=== PATIENT | male | born 1965 | race Caucasian/White ===

== ENCOUNTER 2019-09-10 12:14 | Outpatient (CLI) | payer OTHER, SELFPAY | END 2019-09-10 12:15 | disposition home or self-care (01) | PROVIDERS: PCP Internal Medicine; Visit Provider Urology | DX: N43.40 Spermatocele of epididymis, unspecified (principal) | CPT/HCPCS: 87086 ==

== ENCOUNTER 2019-09-13 12:47 | Emergency (ER) | payer OTHER, SELFPAY ==
--- NOTE | ~2019-09-13 | CT_ITS ---
EXAMINATION: CT abdomen pelvis w con DATE: 09/13/2019 13:48 INDICATION: Left lower quadrant pain TECHNIQUE: Computed tomography (CT) of the abdomen and pelvis was performed with 100 cc Omnipaque 350 intravenous contrast. The dose-length product was 561.02 mGy-cm. Automated exposure control and iter ative reconstruction technique were employed. COMPARISON: None. FINDINGS: Dependent atelectasis. No significant pleural or pericardial effusion. Heart size normal. M ild atherosclerosis. There is a right hydrocele. No lymphadenopathy. There are liver cysts, left hepatic lobe. The spleen, pancreas, adrenal glands and kidneys are unrema rkable. Gallbladder is present. There is acute diverticulitis of the descending colon. No obstruction. No abnormal pelvic masses or f luid collections. There are appendectomy clips. No free air no free air. No evidence for abscess. IMPRESSION: 1. Acute uncomplicated descending diverticulitis. Reviewed, dictated and finalized at location A.
[2019-09-13 12:52] VITALS: BP 135/88; PULSE 94; RESP 20; TEMP 37; O2SAT 98
--- NOTE | 2019-09-13 12:58 | ED.ABDPAIN ---
HPI - Abdominal Pain General Chief Complaint: Abdominal Pain Stated Complaint: LLQ pain Time Seen by Provider: 09/13/19 12:52 History of Present Illness HPI narrative: Pt is a 53 y/o male presenting to the ED c/o ABD pain. Pt reports he started experiencing LUQ ABD pain yesterday at 1700 while eating dinner. Pt states the pain is currently a 5/10 on the pain scale and notes it is worsened with palpation and movement. Pt also reports subjective fever and nausea, but denies constipation, vomiting, urinary frequency, dysuria, or cough. Pt states he took a laxative despite not feeling constipated and performed a BM. Pt also notes his temperature was 99.2 F despite subjectively feeling a fever. Pt reports Hx's of multiple hernias with a hernia repair and an appendectomy. Pertinent past history: other (Multiple hernias) Onset (ago): day(s) (1) Location: LUQ Associated symptoms: nausea and fever (Subjective) Related Data Home Medications Medication Instructions Recorded Confirmed valacyclovir 500 mg PO QPM 09/08/19 09/08/19 vilazodone [Viibryd] 10 mg PO QPM 09/08/19 09/08/19 Allergies Allergy/AdvReac Type Severity Reaction Status Date / Time No Known Allergies Allergy Verified 09/13/19 13:01 Review of Systems Review of Systems: All systems reviewed & are unremarkable except as noted in HPI and below Constitutional: Constitutional: Reports fever(s) (Subjective) Respiratory: Respiratory: Denies cough Gastrointestinal: Gastrointestinal: Reports abdominal pain (LUQ), Reports nausea, Denies vomiting and Denies other (Constipation) Genitourinary: Genitourinary: Denies dysuria and Denies urinary frequency PMFSH Past Medical History Medical History Anxiety Bronchitis Finger fracture Herpes Surgical History Surgical History H/O inguinal hernia repair History of appendectomy Family History Family History Other Family history of allergic disorder Social History Social History Smoking status: Never smoker Alcohol intake: never Exam Const: General: healthy appearing, no acute distress and alert Nutritional Appearance: well nourished HENMT: Mouth: Yes lip normal Eyes: Conjunctivae: conjunctivae normal Resp: Effort & Inspection: normal respiratory effort GI: GI Palp: Yes Soft to palpation and Yes Tenderness to palpation present (GI) (Point in LUQ just medial to the anterior superior illiac) Auscultation: normal bowel sounds Back/Spine/Pelvis: Back: other (Full ROM) Skin: General skin exam: normal color Other: Warm; Dry Neuro: General: patient oriented x3 Speech: normal speech Extrem: General: full ROM Psych: Mental Status: mental status grossly normal Affect: normal affect Course Vital Signs Vital signs: Vital Signs Temperature 37.0 C 09/13/19 12:52 Pulse Rate 94 09/13/19 12:52 Respiratory Rate 20 09/13/19 12:52 Blood Pressure 135/88 09/13/19 12:52 Pulse Oximetry 98 09/13/19 12:52 Temperature 37.0 C 09/13/19 12:52 Pulse Rate 96 09/13/19 14:17 Respiratory Rate 20 09/13/19 12:52 Blood Pressure 132/83 09/13/19 14:17 Pulse Oximetry 98 09/13/19 14:17 MDM - Abdominal Pain MDM Narrative Medical decision making narrative: He has uncomplicated diverticulitis and should be a good candidate for outpatient treatment. Given instructions for when to return to the ED. Differential Diagnosis Differential diagnosis: Likely calculus of kidney, diverticulitis and small bowel obstruction Medical Records Attestation: I reviewed the patient's medical records. Lab Data Attestation: I reviewed the patient's lab results. Result diagrams: 09/13/19 13:03 09/13/19 13:03 Labs: Lab Results 09/13/19 09/13/19 09/13/19 Range/Units 13:03 13:03 13:54 WBC 12.2 H (4.5
[2019-09-13 13:09] LABS: Basophils Percent Auto 0.2 % (0.2-1.2); Eosinophils Absolute Auto 0.1 K/mm3 (0-0.3); Eosinophils Percent Auto 0.7 % (0-4.4); Hematocrit 43.7 % (42.0-52.0); Hemoglobin 14.5 g/dL (14.0-18.0); Immature Granulocyte Absolute 0.04 K/mm3 (0.00-0.031); Immature Granulocyte Percent A 0.3 % (0-0.5); Lymphocytes Absolute Auto 1.23 K/mm3 (0.9-3.2); Lymphocytes Percent Auto 10.1 % (18.3-44.2); Mean Corpuscular HGB Conc 33.2 g/dl (32-36); Mean Corpuscular Hemoglobin 30.8 pg (26-34); Mean Corpuscular Volume 92.8 fl (80-100); Mean Platelet Volume 10.6 fl (7.4-10.4); Monocytes Absolute Auto 1.2 K/mm3 (0.1-0.6); Monocytes Percent Auto 9.5 % (2.6-8.5); Neutrophils Absolute Auto 9.7 K/mm3 (1.3-6.7); Neutrophils Percent Auto 79.2 % (45.5-73.1); Platelet Count Result 205 k/mm3 (150-375); Red Blood Count 4.71 M/mm3 (4.6-6.20); Red Cell Distribution Width 12.9 % (11.5-14.5); White Blood Count 12.2 K/mm3 (4.5-10.0)
[2019-09-13 13:22] LABS: Alanine Aminotransferase 30 U/L (4-50); Albumin Level 4.4 g/dL (3.5-5.1); Alkaline Phosphatase 88 U/L (38-126); Aspartate Amino Transferase 26 U/L (17-59); Bilirubin,Total 0.8 mg/dL (0.2-1.3); Blood Urea Nitrogen 18 mg/dL (9-20); Calcium 9.4 mg/dL (8.4-10.2); Carbon Dioxide 28 mmol/L (22-30); Chloride 103 mmol/L (98-107); Estimated CRCL calculation 72 ml/min; Estimated Glomerular Filt Rate > 60; Glucose 100 mg/dL (75-110); Lipase 27 U/L (23-300); Sodium 136 mmol/L (137-145)
[2019-09-13 14:04] LABS: Add Urine Microscopic? YES; Appearance Urine Clear (Clear); Bilirubin Urine Negative (Negative); Blood Urine Negative (Negative); Color Urine Yellow (Yellow); Glucose Urine UA Negative (Negative); Ketones Urine Trace mg/dL (Negative); Leukocyte Esterase Ur Negative LEU/UL (Negative); Mucus Urine Rare /lpf; Nitrate Urine Negative (Negative); Protein Urine Negative (Negative); Squamous Epithelial Cell Urine Rare /hpf (Few); Urobilinogen Urine Negative mg/dL (<2.0); WBC Urine 0-3 /hpf
[2019-09-13] MEDS: CIPROFLOXACIN 500 MG TAB PO (14:10)
[2019-09-13] MEDS: metroNIDAZOLE 250 MG TABLET 500 MG PO (14:11)
[2019-09-13 14:17] VITALS: BP 132/83; PULSE 96; O2SAT 98
== END 2019-09-13 14:19 | disposition home or self-care (01) ==
PROVIDERS: Emergency Provider Emergency Medicine; PCP Internal Medicine
DX: K57.32 Diverticulitis of large intestine without perforation or abscess without bleeding (principal); F41.9 Anxiety disorder, unspecified
CPT/HCPCS: 36415; 74177; 80053; 81001; 83690; 85025; 99284; A9270; Q9967

== ENCOUNTER 2019-12-31 08:21 | Outpatient (CLI) | payer OTHER, SELFPAY ==
[2019-12-31 09:08] LABS: Hematocrit 44.1 % (42.0-52.0); Hemoglobin 15.4 g/dL (14.0-18.0)
== END 2019-12-31 08:22 | disposition home or self-care (01) ==
PROVIDERS: Anesthesiology; PCP Internal Medicine; Visit Provider Urology
DX: N43.40 Spermatocele of epididymis, unspecified (principal); K40.90 Unilateral inguinal hernia, without obstruction or gangrene, not specified as recurrent; Z01.812 Encounter for preprocedural laboratory examination
CPT/HCPCS: 36415; 85014; 85018; 86850; 86900; 86901; 87086

== ENCOUNTER 2020-01-04 00:38 | Outpatient (CLI) | payer OTHER, SELFPAY ==
[2020-01-04 18:41] LABS: SARS-CoV-2 RNA PCR Negative
== END 2020-01-04 00:39 | disposition home or self-care (01) ==
LOC: ANHCOVIDDT 00:39
PROVIDERS: PCP Internal Medicine; Visit Provider Urology
DX: Z01.812 Encounter for preprocedural laboratory examination (principal); Z11.59 Encounter for screening for other viral diseases
CPT/HCPCS: 87635; C9803; U0003

== ENCOUNTER 2020-01-06 01:34 | Day surgery (SDC) | payer OTHER, SELFPAY ==
[2019-09-08 10:12] VITALS: BMI 28.8
[2019-12-24 11:49] VITALS: BMI 28.8
[2020-01-06] VITALS (10 sets, daily range): BP systolic 94–132; BP diastolic 59–85; PULSE 58–81; RESP 12–16; TEMP 36.2–36.8; O2SAT 96–100
[2020-01-06] MEDS: ACETAMINOPHEN 500 MG TABLET 1000 MG PO (06:28)
[2020-01-06] MEDS: LACTATED RINGERS 1,000 ML 30 ML IV CONT ×2 (06:40→10:05)
[2020-01-06] MEDS: KETOROLAC 15 MG/ML VIAL (*BKC) IV PUSH (06:43)
--- NOTE | 2020-01-06 06:52 | WPDANESEPPF ---
Anes - Initial Pre Proc Eval Procedure: Operation Date: 01/06/20 07:30 Proposed Procedures p Right Spermatocelectomy, Possible Orchiopexy - Misha De Anda MD s Laparoscopic Right Inguinal Hernia Repair With Mesh, Davinci Assisted - Pierre Felix DO s Ventral Hernia Repair With Possible Mesh - Pierre Felix DO Date/Time: 01/06/20 06:52 Surgeon: Misha De Anda MD Pre Op Diagnosis: right spermatocele, Rt Inguinal and Ventral Hernia Patient Data Age: 54 Gender: M Height: 5 ft 8 in Weight: 86.7 kg Allergies Allergy/AdvReac Type Severity Reaction Status Date / Time No Known Allergies Allergy Verified 01/06/20 06:22 Home Medications Medication Instructions Recorded Confirmed Type valacyclovir 500 mg PO QPM 09/08/19 01/06/20 History vilazodone [Viibryd] 10 mg PO QPM 09/08/19 01/06/20 History Patient hx anesthesia problems: none Family hx anesthesia problems: none PMFSH Past Medical History Medical History Anxiety BPH (benign prostatic hyperplasia) Bronchitis Depression Finger fracture Herpes Surgical History Surgical History History of appendectomy History of ear surgery S/P excision of lipoma S/P hernia repair Family History Family History Father Heart disease Unknown Breast cancer Other Family history of allergic disorder Social History Social History Smoking status: Never smoker Alcohol intake: never Anes - Eval Final PreProcedure Day of Procedure 01/06/20 06:52 Patient weight: overweight Heart: regular rate and rhythm Lungs: clear to auscultation Airway: Mallampati scale class 1 Neurological: alert and oriented Last oral intake: >/= 8 hours ASA classification: II Emergent: no Anesthetic plan: proceed Anesthesia type and monitoring: general ETT and standard monitoring Informed Consent: The patient's anesthetic plan and its attendant risks and benefits were discussed with the patient/family/POA. Questions were solicited and answers provided to the satisfaction of the patient/family/POA.
--- NOTE | 2020-01-06 07:15 | PM.IMHP ---
H&P: HPI History of Present Illness Chief complaint: right spermatocele, Rt Inguinal and Ventral Hernia Narrative: Wes Valles is a 54 year old male who presents for right inguinal hernia repair and ventral hernia repair. He had a CT a couple months ago and was found to have diverticulitis. Hernias were also noted. He has right groin pain with activity and also has pain at a spot above his umbilicus. Review of Systems Review of Systems: All systems reviewed & are unremarkable except as noted in HPI and below Constitutional: Constitutional: Denies chills, Denies fever(s), Denies headache(s) and Denies weight loss Eyes: Eyes: Denies change in vision ENT: Denies dizziness, Denies headache(s), Denies neck mass and Denies throat swelling Cardiovascular: Cardiovascular: Denies chest pain, Denies lightheadedness and Denies dyspnea Respiratory: Respiratory: Denies cough, Denies dyspnea and Denies wheezing Gastrointestinal: Gastrointestinal: Denies abdominal pain, Denies change in bowel habits, Denies nausea and Denies vomiting Genitourinary: Genitourinary: Denies hematuria and Denies dysuria Musculoskeletal: Musculoskeletal: Reports as per HPI Integumentary/Breasts: Skin/Breast: Reports as per HPI Neurologic: Denies dizziness and Denies headache(s) Allergic/Immunologic: Allergic/Immunologic: Denies throat swelling and Denies wheezing PMFSH Past Medical History Medical History Anxiety BPH (benign prostatic hyperplasia) Bronchitis Depression Finger fracture Herpes Surgical History Surgical History History of appendectomy History of ear surgery S/P excision of lipoma S/P hernia repair Family History Family History Father Heart disease Unknown Breast cancer Other Family history of allergic disorder Social History Social History Smoking status: Never smoker Alcohol intake: never Meds Home Medications and Allergies Home Medications Medication Instructions Recorded Confirmed Type valacyclovir 500 mg PO QPM 09/08/19 01/06/20 History vilazodone [Viibryd] 10 mg PO QPM 09/08/19 01/06/20 History Allergies Allergy/AdvReac Type Severity Reaction Status Date / Time No Known Allergies Allergy Verified 01/06/20 06:22 Vital Signs Vital Signs - 24 hr 01/06/20 06:51 Temperature 36.8 C Pulse Rate 70 Respiratory Rate 16 Blood Pressure 119/85 Pulse Oximetry 97 Exam Const: General: no acute distress and alert Orientation/consciousness: patient oriented x3 HENMT: Head: normocephalic and atraumatic Ears: hearing grossly normal bilaterally General nose exam: Normal nares present Mouth: Yes Normal oral and palatal mucosa present Eyes: Periorbital: periorbital findings normal Sclera: sclerae normal EOM: EOMs intact bilaterally Neck: Neck: normal visual inspection, no lymphadenopathy and trachea midline Chest: Chest palpation & inspection: normal inspection of the chest Resp: Effort & Inspection: normal respiratory effort Auscultation: clear to auscultation bilaterally Cardio: Jugular venous distension: no JVD Rate: regular rate Rhythm: regular rhythm Heart sounds: S1 normal heart sound present and S2 normal heart sound present Peripheral pulses: Peripheral pulses 2+ throughout GI: Inspection: normal to inspection GI Palp: Yes Soft to palpation, No Tenderness to palpation present (GI), No Guarding due to palpation present (GI), Yes Hernia present (ventral hernia) and No Rebound tenderness present Percussion: Yes normal to percussion Auscultation: normal bowel sounds : General: Yes no CVA tenderness Scrotum: inguinal hernia on the right Back/Spine/Pelvis: Back: no CVA tenderness Neuro: General: patient oriented x3, no focal motor deficits and CN
--- NOTE | 2020-01-06 07:24 | PM.HPGS ---
History of Present Illness History of Present Illness Consent: Risks, benefits, and alternatives have been discussed and questions answered. Patient agrees to proceed with procedure. Chief complaint: right spermatocele, Rt Inguinal and Ventral Hernia Narrative: Wes Valles is a 54 year old male with right spermatocele PMF Past Medical History Medical History Anxiety BPH (benign prostatic hyperplasia) Bronchitis Depression Finger fracture Herpes Surgical History Surgical History History of appendectomy History of ear surgery S/P excision of lipoma S/P hernia repair Family History Family History Father Heart disease Unknown Breast cancer Other Family history of allergic disorder Social History Social History Smoking status: Never smoker Alcohol intake: never Meds Home Medications and Allergies Home Medications Medication Instructions Recorded Confirmed Type valacyclovir 500 mg PO QPM 09/08/19 01/06/20 History vilazodone [Viibryd] 10 mg PO QPM 09/08/19 01/06/20 History Allergies Allergy/AdvReac Type Severity Reaction Status Date / Time No Known Allergies Allergy Verified 01/06/20 06:22 Vital Signs Vital Signs - 24 hr 01/06/20 06:51 Temperature 36.8 C Pulse Rate 70 Respiratory Rate 16 Blood Pressure 119/85 Pulse Oximetry 97 Exam Const: General: no acute distress HENMT: Ears: TM's normal bilaterally Resp: Auscultation: clear to auscultation bilaterally : Other: Right spermatocele, normal bilateral testes Assessment and Plan Assessment and plan (1) Spermatocele: Code(s): N43.40 - Spermatocele of epididymis, unspecified Status: Acute Assessment and Plan: Plan right spermatocelectomy, possible orchiopexy. risks benefits and alternatives discussed. Pt agrees to proceed.
--- NOTE | 2020-01-06 07:32 | SUR.PREOP ---
Up to bathroom.
[2020-01-06] MEDS: ceFAZolin 2 GM/D5W 50 ML 2 GM/50 ML BAG IVPB (07:34)
[2020-01-06] MEDS: BUPIVACAINE/EPINEPHRINE 0.5% 30 ML VIAL INFILTRATE (09:22)
--- NOTE | 2020-01-06 09:56 | PM.PROC ---
Procedure Note - Detailed Date of procedure: 01/06/20 Pre-op diagnosis: right spermatocele, Rt Inguinal and Ventral Hernia Post-op diagnosis: same (Indirect right inguinal hernia, ventral hernia) Procedure performed: 1. Laparoscopic right inguinal hernia repair with Progrip mesh, da [place] assisted 2. Ventral hernia repair Description of procedure: Procedure as well as risks, benefits, and alternatives were discussed with the patient. Written consent was obtained and placed in chart prior to procedure. Patient was brought back to surgical suite. He was placed supine on operating table. Time-out was done to confirm patient and procedure. He was then intubated by Anesthesia Department. His abdomen was prepped and draped in sterile fashion using chlorhexidine prep. 0.5% bupivacaine with epinephrine was infiltrated at each location for incision. A 2 cm incision was made about 8 cm superior to the umbilicus using a 15 blade scalpel. Electrocautery was used for hemostasis and for careful dissection down to the hernia sac. The hernia sac was then freed up circumferentially and excised at the level of the fascia using electrocautery. The hernia defect measured approximately 1 cm. A 12 millimeter trocar was inserted through the hernia defect and carbon dioxide insufflation was used to create a pneumoperitoneum. A camera was inserted and the abdominal cavity was inspected. The patient was placed in slight Trendelenburg position. An 8 millimeter incision was made on the right lateral abdomen and an 8 millimeter trocar was inserted under direct visualization. Another 8 millimeter incision was made in the left lateral abdomen and an 8 millimeter trocar was inserted under direct visualization. The robotic arms were brought up to the patient's bedside and secured to the ports. The camera and instruments were inserted. I then moved over to the robotic console and took control of the camera and instruments. After careful inspection of the abdominal cavity, I began scoring the peritoneum along the right lower quadrant using scissors with electrocautery. The preperitoneal plane was entered and this was carefully dissected caudally along the inferior epigastric vessels. Careful dissection with scissors with electrocautery and blunt dissection was used to continue this dissection. I dissected far enough laterally to allow for mesh placement, and also dissected medially to identify the pubic arch and Jorge's ligament. The hernia sac was identified and carefully dissected posteriorly. The cord contents were also identified and the peritoneum was carefully dissected far enough posteriorly to allow for mesh placement. Once an adequate pocket was created, I then placed the mesh within the preperitoneal pocket and carefully unfolded it. The mesh was centered on the hernia defect with adequate overlap circumferentially. The inferior edge of the mesh was inspected to ensure that it was far enough away from the peritoneal edge. The mesh appeared in proper position overlying the entire myopectineal orifice. The peritoneum was then closed over the mesh using a 3-0 V-lock running absorbable suture. The robotic instruments were removed. The robotic arms were disengaged from the ports and moved away from the bedside. The patient was flattened out in bed, the ports were removed under direct visualization, and the pneumoperitoneum was released. The ventral hernia was then repaired using 0 Ethibond [id number] sutures. A total of 3 sutures were placed transversely to approximate the fascia. The skin of the incisions was approximated using 4-0 Monocryl subcuticular suture, and Exofin glue was applied on top. The patient was awakened from anesthesia, extubated, and transferred to recovery. Implants: Progrip Mesh 10cm x 15cm Anesthesia: GETA and local (0.5% bupivicaine with epi) Surgeon: Pierre Felix DO Estimated blood loss (mL): 5 Drains: No Packing: No Pathology: none se
--- NOTE | 2020-01-06 11:32 | SUR.PHASEII ---
1130- pt spouse contacted at 1115 and updated on pt progress/ condition. Pt dozing at intervals and drinking fluids when encouraged. No c/o pain.
--- NOTE | 2020-01-06 12:19 | SUR.PHASEII ---
1220- spouse updated. pt awake. tolerating po fluids well. no c/o pain verbalized.
--- NOTE | 2020-01-06 12:36 | SUR.PHASEII ---
1240- ambulated pt to bathroom. voided 125ml werner urine. dressings remain dry and intact.
--- NOTE | 2020-01-07 06:19 | OP_ITS ---
DATE OF PROCEDURE: 01/06/2020 PREOPERATIVE DIAGNOSIS: Right spermatocele. POSTOPERATIVE DIAGNOSIS: Right spermatocele. PROCEDURE PERFORMED: 1. Right spermatocelectomy. 2. Right orchiopexy. DESCRIPTION OF PROCEDURE: Informed consent was obtained. The patient was taken to the operating room, given preoperative IV antibiotics. He was induced with anesthesia. He was placed in the supine position. He was prepped and draped in normal sterile fashion. We made a 4 cm midline scrotal raphe incision. We dissected down to the right tunica vaginalis, tunica vaginalis was opened identifying normal-appearing testicle with a 4 cm spermatocele. We opened the tunica associated with the spermatocele and carefully dissected it free from the spermatic cord and testicle down to and narrow infundibulum. The infundibulum was then clamped. We cut the infundibulum and the spermatocele was sent to specimen. We oversewed infundibulum with a 2-0 Vicryl suture. We closed the tunica that had covered the spermatocele closing the defect with a 3-0 Vicryl suture. We then inspected the testicle, there was no injury and spermatic cord was not injured. At this point, the testicle did appear mobile. We therefore performed an orchiopexy with a 3-0 Ethibond suture through the tunica albuginea of the testicle and through the dartos layer laterally, medially and inferiorly. This secured the testicle in place. We then closed the dartos with 2-0 Vicryl sutures and deep dermal layer with a 3-0 Vicryl suture and skin with a 3-0 chromic horizontal mattress closure. A dressing was placed. The case was then turned over to general surgery to perform his robotic hernia repair. ESTIMATED BLOOD LOSS: Minimal. IV FLUIDS: Per anesthesia. COMPLICATIONS: None. FOLLOWUP: The patient will follow up in the office in 3 weeks for a postoperative evaluation. [place] MT: Heidi MEYERS
== END 2020-01-06 13:00 | disposition home or self-care (01) ==
PROVIDERS: Surgery; PCP Internal Medicine; Visit Provider Urology
PROC: (CPT 54840; principal; 2020-01-06 07:30)
PROC: 8E0Y4CZ Robotic Assisted Procedure of Lower Extremity, Percutaneous Endoscopic Approach (ICD-10-PCS; CPT 49650; 2020-01-06 07:30)
PROC: 0WQF0ZZ Repair Abdominal Wall, Open Approach (ICD-10-PCS; CPT 49650; 2020-01-06 07:30)
DX: N43.41 Spermatocele of epididymis, single (principal); K40.90 Unilateral inguinal hernia, without obstruction or gangrene, not specified as recurrent; K43.9 Ventral hernia without obstruction or gangrene; F41.8 Other specified anxiety disorders; N40.0 Benign prostatic hyperplasia without lower urinary tract symptoms; B00.9 Herpesviral infection, unspecified
CPT/HCPCS: 54840; 54640; 49650; S2900; 87635; 88304; A9270; C1781; C9803; J0690; J1100; J1170; J1885; J2250; J2405; J2704; J2710; J3010; J7030; J7120; U0003

== ENCOUNTER 2021-09-15 20:28 | Inpatient (IN) | payer OTHER, SELFPAY ==
--- NOTE | ~2021-09-15 | CT_ITS ---
EXAMINATION: CT abdomen pelvis wo con EXAM DATE: 09/15/2021 22:51 INDICATION: LLQ pain, r/o diverticulitis TECHNIQUE: Spiral CT of the abdomen and pelvis was performed without contrast. Axial, coronal and s agittal images of the abdomen and pelvis were reviewed. The dose-length product (DLP) for this exami [facility] was 566.11 mGy-cm. The exposure was tailored according to patient size (auto mA exposure cont rol), and iterative reconstruction (ASIR) was used as additional dose reduction technique. Comparison is made to prior examination from 08/24/2019. FINDINGS: The liver, spleen, adrenal glands and pancreas are unremarkable. Gallbladder is unremarkab le. No biliary obstruction. There is no nephrolithiasis or hydronephrosis. The prostate is unrema rkable. The bladder is unremarkable. There is no retroperitoneal or pelvic lymphadenopathy. Small bilateral inguinal fat-containing hernias. Probable appendectomy. Mild to moderate colonic diverticulosis. There is moderate inflammation along the descending/sigmoid colonic junction, likely acute diverticulitis with microperforation. No gross free intraperitoneal gas or abscess. The stomach and small bowel are unremarkable. There is expecte d amount of colonic stool. The heart is normal in size. There are no pericardial or pleural effusio ns. The lung bases are unremarkable. There are no osteoblastic or osteolytic lesions identified. IMPRESSION: Acute descending/sigmoid colonic diverticulitis with microperforation. No abscess. Reviewed, dictated and finalized at location . IMPRESSION: Acute descending/sigmoid colonic diverticulitis with microperforati on. No abscess.
[2021-09-15 20:30] VITALS: BP 133/78; PULSE 113; RESP 22; TEMP 36.4; O2SAT 97
[2021-09-15 22:16] VITALS: BP 122/75; PULSE 114; RESP 18; O2SAT 100
--- NOTE | 2021-09-15 22:39 | ED.ABDPAIN ---
HPI - Abdominal Pain General Chief Complaint: Abdominal Pain Stated Complaint: abdominal pain Time Seen by Provider: 09/15/21 22:34 History of Present Illness HPI narrative: 55-year-old male presents to the emergency room with acute onset of left lower quadrant pain started today. Patient has a history of diverticulitis, states pain is very similar. Admits to eating almonds last night. Patient states that prior to arrival took [place] and that has relieved his pain. Denies fever, nausea/vomiting, diarrhea Related Data Home Medications Medication Instructions Recorded Confirmed Viibryd 10 mg PO QPM 09/08/19 01/22/20 valacyclovir 500 mg PO QPM 09/08/19 01/22/20 Allergies Allergy/AdvReac Type Severity Reaction Status Date / Time No Known Allergies Allergy Verified 09/15/21 20:33 Review of Systems Review of Systems: CONSTITUTIONAL: Denies fever, chills, or sweats. EYES: Denies visual changes, redness, or discharge. ENT: Denies rhinorrhea, congestion, sore throat, or otalgia. CARDIOVASCULAR: Denies chest pain, palpitations, or edema. RESPIRATORY: Denies cough or dyspnea. GASTROINTESTINAL: Reports lower left quadrant pain. GENITOURINARY: Denies dysuria or hematuria. SKIN: Denies rash or itching. MUSCULOSKELETAL: Denies back pain, joint pain, or myalgia. NEUROLOGIC: Denies headache, numbness, dizziness, or weakness. PSYCHIATRIC: Denies anxiety or depression. PMFSH Past Medical History Medical History (Updated 09/16/21 @ 01:15 by Michael Julio APRN) Anxiety BPH (benign prostatic hyperplasia) Bronchitis Depression Finger fracture Herpes Surgical History Surgical History History of appendectomy History of ear surgery S/P excision of lipoma S/P hernia repair Family History Family History Father Heart disease Unknown Breast cancer Other Family history of allergic disorder Social History Social History Smoking status: Never smoker Alcohol intake: never Exam Narrative: GENERAL: Well-appearing, well-nourished, and in no acute distress. HEAD: Normocephalic, atraumatic. EYES: PERRLA and EOMI. ENT: Nares clear, no rhinorrhea or epistaxis. Mucous membranes moist. NECK: Supple. No adenopathy or masses. CHEST: Clear to auscultation. No respiratory distress. No wheezes rales or rhonchi HEART: Regular rate and rhythm. No murmur heard. Normal peripheral pulses. ABDOMEN: Soft, left lower quadrant tenderness, nondistended, normal active bowel sounds. EXTREMITIES: Normal range of motion. No edema. SKIN: Warm, dry, no rash. NEURO: No focal deficits. Alert and oriented x3. PSYCH: Normal mood and affect. Course Course Emergency Course: 2349: Discussed case with Dr. Felix. He recommends hospitalization for IV antibiotics. He states he will consult with patient tomorrow morning. Wants patient n.p.o. Vital Signs Vital signs: Vital Signs Temperature 36.4 C 09/15/21 20:30 Pulse Rate 113 H 09/15/21 20:30 Respiratory Rate 22 H 09/15/21 20:30 Blood Pressure 133/78 09/15/21 20:30 Pulse Oximetry 97 09/15/21 20:30 Temperature 36.4 C 09/15/21 20:30 Pulse Rate 101 H 09/16/21 00:19 Respiratory Rate 16 09/16/21 00:19 Blood Pressure 135/83 09/16/21 00:19 Pulse Oximetry 97 09/16/21 00:19 MDM - Abdominal Pain Lab Data Result diagrams: 09/15/21 23:32 09/15/21 23:32 Labs: Lab Results 09/15/21 09/15/21 Range/Units 23:32 23:32 WBC 15.6 H (4.5-10.0) K/mm3 RBC 5.06 (4.6-6.20) M/mm3 Hgb 15.9 (14.0-18.0) g/dL Hct 47.7 (42.0-52.0) % MCV 94.3 (80-100) fl MCH 31.4 (26-34) pg MCHC 33.3 (32-36) g/dl RDW 15.3 H (11.5-14.5) % Plt Count 195 (150-375) k/mm3 MPV 10.4 (7.4-10.4) fl Immature Gran % (Auto) 1.7 H (0-0.5) % Neut % (Auto) 83
[2021-09-15 23:47] LABS: Basophils Percent Auto 0.3 % (0.2-1.2); Eosinophils Absolute Auto 0.1 K/mm3 (0-0.3); Eosinophils Percent Auto 0.8 % (0-4.4); Hematocrit 47.7 % (42.0-52.0); Hemoglobin 15.9 g/dL (14.0-18.0); Immature Granulocyte Absolute 0.27 K/mm3 (0.00-0.031); Immature Granulocyte Percent A 1.7 % (0-0.5); Lymphocytes Percent Auto 6.4 % (18.3-44.2); Mean Corpuscular HGB Conc 33.3 g/dl (32-36); Mean Corpuscular Hemoglobin 31.4 pg (26-34); Mean Corpuscular Volume 94.3 fl (80-100); Mean Platelet Volume 10.4 fl (7.4-10.4); Monocytes Absolute Auto 1.2 K/mm3 (0.1-0.6); Monocytes Percent Auto 7.7 % (2.6-8.5); Neutrophils Percent Auto 83.1 % (45.5-73.1); Platelet Count Result 195 k/mm3 (150-375); Red Blood Count 5.06 M/mm3 (4.6-6.20); Red Cell Distribution Width 15.3 % (11.5-14.5); White Blood Count 15.6 K/mm3 (4.5-10.0)
--- NOTE | 2021-09-15 23:51 | PC.NURSE ---
TRIED CALLING EXCHANGE PER DR. CHOUDHURY PREFERENCE SHEET. CALLED EXCHANGE SEVERAL TIMES WITH NO ANSWER. CONTINUED FOR 10MINUTES AND THEN MOVED ONTO DR. CHOUDHURY CELL PHONE PREFERENCE .
[2021-09-15 23:52] LABS: Alanine Aminotransferase 28 U/L (4-50); Albumin Level 4.1 g/dL (3.5-5.1); Alkaline Phosphatase 83 U/L (38-126); Anion Gap 6 mmol/L (8-16); Aspartate Amino Transferase 30 U/L (17-59); Bilirubin,Total 0.7 mg/dL (0.2-1.3); Blood Urea Nitrogen 26 mg/dL (9-20); Carbon Dioxide 27 mmol/L (22-30); Chloride 104 mmol/L (98-107); Estimated CRCL calculation 59 ml/min; Estimated Glomerular Filt Rate > 60; Glucose 107 mg/dL (65-110); Lipase 49 U/L (23-300); Potassium 3.9 mmol/L (3.4-5.0); Sodium 137 mmol/L (137-145)
[2021-09-16] VITALS (8 sets, daily range): BP systolic 126–151; BP diastolic 72–92; PULSE 91–105; RESP 14–20; TEMP 36.1–37.1; O2SAT 95–99; BMI 29.5
[2021-09-16] MEDS: PIPERACILLIN/TAZOBACTAM SOD 4.5 GM in SODIUM CHLORIDE 0.9% IV 100 ML 200 ML IVPB (00:29)
[2021-09-16] MEDS: SODIUM CHLORIDE 0.9% IV 1,000 ML 150 ML IV CONT (00:29)
[2021-09-16 01:05] LABS: Add Urine Microscopic? NO; Appearance Urine Clear (Clear); Bilirubin Urine Negative (Negative); Blood Urine Negative (Negative); Color Urine Yellow (Yellow); Glucose Urine UA Negative (Negative); Ketones Urine Negative (Negative); Leukocyte Esterase Ur Negative LEU/UL (Negative); Nitrate Urine Negative (Negative); Protein Urine Negative (Negative); Urobilinogen Urine Negative mg/dL (<2.0)
[2021-09-16 01:14] LABS: Specific Grav Ur 1.033 (1.001-1.035)
--- NOTE | 2021-09-16 01:44 | ADMGEN ---
This patient, Wes Valles, was admitted to [address] [place], [place] [id number]. Patient/family oriented to hospital policies and general routines including ID bracelet, bed and alarms, visiting hours, pain management, procedures, bathroom and other care routines, personal items, smoking policy, room service/diet, and visiting hours. Information on how to activate the Rapid Response Team has been discussed. Patient/Family are encouraged to report perceived risks to care and to ask questions if they do not understand what they are told or what they should do.
[2021-09-16] MEDS: LORazepam INJ (*CRX) 2 MG/ML VIAL 0.5 MG IV PUSH (03:24)
[2021-09-16] MEDS: MORPHINE SULFATE (*CRX) 4 MG/ML INJ IV PUSH (04:52)
[2021-09-16] MEDS: SODIUM CHLORIDE 0.9% IV 1,000 ML 125 ML IV CONT ×3 (07:52→23:59)
--- NOTE | 2021-09-16 10:22 | PHAR ---
HOME MEDS VERIFIED = [facility] [id number] VIIBRYD 20 MG TABS TAKE 1 TAB MY MOUTH DAILY [facility] [id number] BUPROPION XL 150 MG TAB 1 TAB BY MOUTH ONCE A DAY BUPROPION IS A FORMULARY MED & WILL USE THE HOSPITAL SUPPLY. VIIBRYD ORDER ENTERED ON HOSPITAL PROFILE IS FOR 10 MG. 20 MG HAS BEEN FILLED AT PHARMACIES SINCE SEPTEMBER 2020. WILL HAVE DOSE VERIFIED/CLARIFIED.
--- NOTE | 2021-09-16 12:05 | PM.IMHP ---
H&P: HPI History of Present Illness Date/Time: 09/16/21 12:05 Chief Complaint: abdominal pain Narrative: this is 55-year-old male presents ER with acute onset left lower quadrant pain that started about 3:00 p.m. yesterday but escalated up by 7:00 p.m. and hence came to the ER for evaluation. He had some nausea and 1 episode of vomiting prior to arrival to the ER. He denies any diarrhea or constipation. He denies any fever or chills. Denies any shortness of breath or chest pain. He has had similar episode in the past as well. ED evaluation with a CT abdomen and pelvis revealed left sigmoid diverticulitis with microperforation. He is admitted in this setting for further evaluation and management. Has been started on IV antibiotics and IV analgesics.. He rates his pain at 3/10 currently , no nausea vomiting. Review of Systems Review of Systems: CONSTITUTIONAL: Denies fever, chills, or sweats. EYES: Denies visual changes, redness, or discharge. ENT: Denies rhinorrhea, congestion, sore throat, or otalgia. CARDIOVASCULAR: Denies chest pain, palpitations, or edema. RESPIRATORY: Denies cough or dyspnea. GASTROINTESTINAL: Reports lower left quadrant pain. Reports nausea and 1 episode of vomiting GENITOURINARY: Denies dysuria or hematuria. SKIN: Denies rash or itching. MUSCULOSKELETAL: Denies back pain, joint pain, or myalgia. NEUROLOGIC: Denies headache, numbness, dizziness, or weakness. PSYCHIATRIC: Denies anxiety or depression. [facility] Past Medical History Medical History (Updated 09/16/21 @ 01:15 by Michael Julio APRN) Anxiety BPH (benign prostatic hyperplasia) Bronchitis Depression Finger fracture Herpes Surgical History Surgical History History of appendectomy History of ear surgery S/P excision of lipoma S/P hernia repair Family History Family History Father Heart disease Unknown Breast cancer Other Family history of allergic disorder Social History Social History Smoking status: Never smoker Alcohol intake: never Substance use: never Substance use type: does not use Spiritual care concerns: No Meds Home Medications and Allergies Home Medications Medication Instructions Recorded Confirmed Type valacyclovir 500 mg PO QPM 09/08/19 09/16/21 History bupropion HCl 150 mg PO QPM 09/16/21 09/16/21 History vilazodone [Viibryd] 20 mg PO DAILY 09/16/21 09/16/21 History Allergies Allergy/AdvReac Type Severity Reaction Status Date / Time No Known Allergies Allergy Verified 09/16/21 01:47 Vital Signs Vital Signs - 24 hr 09/15/21 20:30 09/15/21 22:16 09/16/21 00:19 Temperature 97.6 F Pulse Rate 113 H 114 H 101 H Respiratory Rate 22 H 18 16 Blood Pressure 133/78 122/75 135/83 Pulse Oximetry 97 100 97 09/16/21 01:24 09/16/21 01:33 09/16/21 01:49 Temperature 96.9 F L Pulse Rate 101 H 101 H 105 H Respiratory Rate 14 14 20 Blood Pressure 128/88 128/88 151/92 H Pulse Oximetry 98 98 99 09/16/21 04:56 09/16/21 07:52 Temperature 97.3 F L Pulse Rate 100 Respiratory Rate 18 18 Blood Pressure 135/77 Pulse Oximetry 95 96 Exam Narrative: GENERAL: Well-appearing, well-nourished, and in no acute distress. HEAD: Normocephalic, atraumatic. EYES: PERRLA and EOMI. ENT: Nares clear, no rhinorrhea or epistaxis. Mucous membranes moist. NECK: Supple. No adenopathy or masses. CHEST: Clear to auscultation. No respiratory distress. No wheezes rales or rhonchi HEART: Regular rate and rhythm. No murmur heard. Normal peripheral pulses. ABDOMEN: Soft, left lower quadrant tenderness, mild guarding in left lower quadrant, nondistended, normal active bowel sounds. EXTREMITIES: Normal range of motion. No edema. SKIN: Warm, dry, no rash. NEURO: No focal deficits. Alert and oriented x3. PSYCH: Normal mood a
--- NOTE | 2021-09-16 12:29 | PM.CNGS ---
Assessment and Plan Assessment and plan (1) Diverticulitis of large intestine with perforation without abscess or bleeding: Code(s): K57.20 - Diverticulitis of large intestine with perforation and abscess without bleeding Status: Acute Assessment and Plan: I have reviewed the CT and discussed the findings with the patient. He has evidence of diverticulitis with micro perforation near the descending sigmoid colon junction. This appears to be focal and he is currently hemodynamically stable. Will continue IV antibiotics and bowel rest throughout the day today. IV hydration as well. As patient symptoms improve, will plan to start clear liquids and slowly advance diet. Discussed that if he is showing worsening signs then may have to re-evaluate and consider emergent surgical intervention. A repeat colonoscopy in 6-8 weeks may be beneficial. Will continue to follow along with patient closely. (2) Sepsis: Qualifiers: Sepsis type: sepsis due to unspecified organism Sepsis acute organ dysfunction status: without acute organ dysfunction Qualified Code(s): A41.9 - Sepsis, unspecified organism Code(s): A41.9 - Sepsis, unspecified organism Status: Acute Assessment and Plan: patient presented with tachycardia and leukocytosis on admission History of Present Illness Consult details Consult date: 09/16/21 Reason for consult: other ( Diverticulitis) Requesting physician: Michael Julio APRN Narrative: this is a 55-year-old man who presented to the emergency department last night with worsening left lower quadrant abdominal pain. He began feeling some mild left lower quadrant pain when getting into his truck yesterday and thought that he might have pulled a muscle at 1st. He then continued to have abdominal pain throughout the day and was not feeling well after dinner. Overnight his pain continued and therefore he decided to come to the emergency department. He denies any fevers or chills. He denies any changes in bowel habits. He states that he generally eats a high-fiber diet and his bowels are usually regular. He does have a history of diverticulitis about 2 years ago. He has not had another episode since then. He last had a colon[place] [address] [place]. Review of Systems Review of Systems: All systems reviewed & are unremarkable except as noted in HPI and below Constitutional: Constitutional: Denies chills and Denies fever(s) Eyes: Eyes: Denies change in vision ENT: Denies hearing loss, Denies neck pain and Denies sore throat Cardiovascular: Cardiovascular: Denies chest pain and Denies dyspnea Respiratory: Respiratory: Denies cough, Denies dyspnea and Denies wheezing Gastrointestinal: Gastrointestinal: Reports as per HPI Genitourinary: Genitourinary: Denies hematuria and Denies dysuria Musculoskeletal: Musculoskeletal: Denies arthralgias, Denies joint swelling and Denies neck pain Allergic/Immunologic: Allergic/Immunologic: Denies wheezing [facility] Past Medical History Medical History (Updated 09/16/21 @ 12:35 by Pierre Felix DO) Anxiety BPH (benign prostatic hyperplasia) Bronchitis Depression Finger fracture Herpes Surgical History Surgical History History of appendectomy History of ear surgery S/P excision of lipoma S/P hernia repair Family History Family History Father Heart disease Unknown Breast cancer Other Family history of allergic disorder Social History Social History Smoking status: Never smoker Alcohol intake: never Substance use: never Substance use type: does not use Spiritual care concerns: No Meds Home Medications and Allergies Home Medications Medication Instructions Recorded Confirmed Type valacyclovir 500 mg PO QPM 09/08/1908/23
[2021-09-16] MEDS: valACYclovir HCL 500 MG TABLET PO (17:18)
[2021-09-16] MEDS: buPROPion HCL XL (24 HR) 150 MG TABCR PO (17:18)
[2021-09-17 05:58] LABS: Basophils Percent Auto 0.3 % (0.2-1.2); Eosinophils Absolute Auto 0.1 K/mm3 (0-0.3); Eosinophils Percent Auto 0.9 % (0-4.4); Immature Granulocyte Absolute 0.06 K/mm3 (0.00-0.031); Immature Granulocyte Percent A 0.5 % (0-0.5); Lymphocytes Absolute Auto 0.99 K/mm3 (0.9-3.2); Lymphocytes Percent Auto 8.6 % (18.3-44.2); Mean Corpuscular HGB Conc 33.3 g/dl (32-36); Mean Corpuscular Hemoglobin 31.7 pg (26-34); Mean Platelet Volume 10.2 fl (7.4-10.4); Monocytes Absolute Auto 0.9 K/mm3 (0.1-0.6); Neutrophils Absolute Auto 9.4 K/mm3 (1.3-6.7); Neutrophils Percent Auto 81.7 % (45.5-73.1); Platelet Count Result 176 k/mm3 (150-375); Red Blood Count 4.42 M/mm3 (4.6-6.20); Red Cell Distribution Width 15.5 % (11.5-14.5); White Blood Count 11.6 K/mm3 (4.5-10.0)
[2021-09-17 06:00] VITALS: BP 140/83; PULSE 85; RESP 21; TEMP 36.5; O2SAT 100
[2021-09-17 06:23] LABS: Alanine Aminotransferase 21 U/L (4-50); Albumin Level 3.4 g/dL (3.5-5.1); Alkaline Phosphatase 55 U/L (38-126); Anion Gap 5 mmol/L (8-16); Aspartate Amino Transferase 22 U/L (17-59); Bilirubin,Total 1.4 mg/dL (0.2-1.3); Blood Urea Nitrogen 14 mg/dL (9-20); Calcium 7.9 mg/dL (8.4-10.2); Carbon Dioxide 26 mmol/L (22-30); Chloride 104 mmol/L (98-107); Estimated CRCL calculation 64 ml/min; Estimated Glomerular Filt Rate > 60; Glucose 84 mg/dL (65-110); Potassium 3.8 mmol/L (3.4-5.0); Sodium 135 mmol/L (137-145)
--- NOTE | 2021-09-17 08:54 | PM.PNGS ---
Progress Note: A&P Assessment and Plan (1) Diverticulitis of large intestine with perforation without abscess or bleeding: Code(s): K57.20 - Diverticulitis of large intestine with perforation and abscess without bleeding Status: Acute Assessment and Plan: Continue IV antibiotics Start clear liquids today Possibly home in next 1-2 days if continuing to improve (2) Sepsis: Qualifiers: Sepsis type: sepsis due to unspecified organism Sepsis acute organ dysfunction status: without acute organ dysfunction Qualified Code(s): A41.9 - Sepsis, unspecified organism Code(s): A41.9 - Sepsis, unspecified organism Status: Acute Subjective Subjective Date/Time Seen: 09/17/21 08:54 Interval history: Pain improving. No fevers. Wants to try liquids. No other complaints. Exam GI: Inspection: non-distended GI Palp: Yes Soft to palpation, Yes Tenderness to palpation present (GI) (LLQ), Yes Guarding due to palpation present (GI) (Minimal LLQ guarding) and No Rebound tenderness present Auscultation: normal bowel sounds Objective Data Vital Signs Vital Signs: Vital Signs - 24 hr 09/16/21 18:16 09/16/21 22:00 09/17/21 06:00 Temperature 37.1 C 36.3 C L 36.5 C Pulse Rate 92 91 85 Respiratory Rate 15 20 21 H Blood Pressure 126/72 145/82 H 140/83 Pulse Oximetry 98 98 100 Intake/Output Intake/Output: Intake & Output 09/14/21 09/15/21 09/16/21 09/17/21 23:59 23:59 23:59 23:59 Intake Total 3275 100 Balance 3275 100 Meds/Results Medications: Active Medications Generic Name Dose Route Start Last Admin Trade Name Freq PRN Reason Stop Dose Admin Bupropion HCl 150 mg 09/16/21 18:00 09/16/21 17:18 Bupropion Hcl Xl (24 Hr) 150 Mg Tabcr PO 150 mg QPM SUN Administration Home Med 1 each 09/16/21 10:50 09/16/21 11:03 Home Medication-Viibyrd 20 Mg BY MOUTH 10/16/21 10:49 1 each DAILY SUN Administration Sodium Chloride 1,000 mls @ 50 mls/hr 09/16/21 06:00 09/16/21 23:59 Normal Saline Iv IV CONT 125 mls/hr .Q20H SUN Administration Piperacillin/Tazobactam/Dextrose 3.375 gm in 50 mls @ 100 mls/hr 09/16/21 06:00 09/17/21 06:17 Zosyn 3.375 Gm/D5w 50ml Pm IVPB Infused Q6H SUN Infusion Morphine Sulfate 4 mg 09/16/21 02:55 09/16/21 04:52 Morphine Sulfate (*Crx) 4 Mg/Ml Inj IV PUSH 4 mg Q4H PRN Administration Pain Rated 7-10 Ondansetron HCl 4 mg 09/16/21 00:23 Ondansetron Inj 4 Mg/2 Ml Vial IV PUSH Q4H PRN Nausea Valacyclovir HCl 500 mg 09/16/21 18:00 09/16/21 17:18 Valacyclovir Hcl 500 Mg Tablet PO 500 mg QPM SUN Administration Radiology Results: ITS Impressions Abdomen/Pelvis CT 09/15/21 22:55 IMPRESSION: Acute descending/sigmoid colonic diverticulitis with microperforation. No abscess. Labs Labs: Laboratory Results - last 24 hr 09/17/21 09/17/21 05:50 05:50 WBC 11.6 H RBC 4.42 L Hgb 14.0 Hct 42.0 MCV 95.0 MCH 31.7 MCHC 33.3 RDW 15.5 H Plt Count 176 MPV 10.2 Immature Gran % (Auto) 0.5 Neut % (Auto) 81.7 H Lymph % (Auto) 8.6 L [place] % (Auto) 8.0 Eos % (Auto) 0.9 Baso % (Auto) 0.3 Lymph # (Auto) 0.99 [place] # (Auto) 0.9 H Eos # (Auto) 0.1 Baso # (Auto) 0.0 Abs Immat Gran (auto) 0.06 H Absolute Neuts (auto) 9.4 H Absolute Nucleated RBC 0.0 Nucleated RBC % 0.0 Sodium 135 L Potassium 3.8 Chloride 104 Carbon Dioxide 26 Anion Gap 5 L BUN 14 D Creatinine 1.10 Estim Creat Clear Calc 64 Estimated GFR > 60 Glucose 84 Calcium 7.9 L Total Bilirubin 1.4 H AST 22 ALT 21 Alkaline Phosphatase 55 Total Protein 6.0 L Albumin 3.4 L
[2021-09-17 09:07] VITALS: RESP 20; O2SAT 100
[2021-09-17] MEDS: SODIUM CHLORIDE 0.9% IV 1,000 ML 50 ML IV CONT (09:07)
--- NOTE | 2021-09-17 11:11 | PM.IMPN ---
Progress Note: A&P Assessment and Plan (1) Diverticulitis: Code(s): K57.92 - Diverticulitis of intestine, part unspecified, without perforation or abscess without bleeding Status: Acute Additional Plan # acute descending/ sigmoid colonic diverticulitis with microperforation. No abscess. Started on IV Zosyn IV analgesics. Antiemetics. NPO. IV fluids. General surgery consultation. appreciate their recommendation. Starting on clear liquids today # history of diverticulitis in the past # anxiety depression # BPH # history of herpes infection # DVT prophylaxis Lovenox # code status full code Subjective Date/time seen: 09/17/21 11:11 Interval history: no overnight events. Abdomen is sore, worsens with activity. No fever chills Review of Systems Review of Systems: All systems reviewed & are unremarkable except as noted in HPI and below ( HPI) Exam Narrative: GENERAL: Well-appearing, well-nourished, and in no acute distress. HEAD: Normocephalic, atraumatic. EYES: PERRLA and EOMI. ENT: Nares clear, no rhinorrhea or epistaxis. Mucous membranes moist. NECK: Supple. No adenopathy or masses. CHEST: Clear to auscultation. No respiratory distress. No wheezes rales or rhonchi HEART: Regular rate and rhythm. No murmur heard. Normal peripheral pulses. ABDOMEN: Soft, left lower quadrant tenderness, mild guarding in left lower quadrant, nondistended, normal active bowel sounds. EXTREMITIES: Normal range of motion. No edema. SKIN: Warm, dry, no rash. NEURO: No focal deficits. Alert and oriented x3. PSYCH: Normal mood and affect. Objective Data Vital Signs Vital Signs: Vital Signs - 24 hr 09/16/21 18:16 09/16/21 22:00 09/17/21 06:00 Temperature 98.7 F 97.3 F L 97.7 F Pulse Rate 92 91 85 Respiratory Rate 15 20 21 H Blood Pressure 126/72 145/82 H 140/83 Pulse Oximetry 98 98 100 09/17/21 09:07 Temperature Pulse Rate Respiratory Rate 20 Blood Pressure Pulse Oximetry 100 Intake/Output Intake/Output: Intake & Output 09/14/21 09/15/21 09/16/21 09/17/21 23:59 23:59 23:59 23:59 Intake Total 3275 1100 Balance 3275 1100 Meds/Results Medications: Active Medications Generic Name Dose Route Start Last Admin Trade Name Freq PRN Reason Stop Dose Admin Acetaminophen 650 mg 09/17/21 08:56 Acetaminophen 325 Mg Tablet PO Q4H PRN Mild Pain (1-3) or Fever Hydrocodone Bitart/Acetaminophen 1 tab 09/17/21 08:56 Hydrocodone/Acetaminophen (*Crx) 5-325 Mg Tablet PO Q4H PRN Pain Rated 4-6 Bupropion HCl 150 mg 09/16/21 18:00 09/16/21 17:18 Bupropion Hcl Xl (24 Hr) 150 Mg Tabcr PO 150 mg QPM SUN Administration Home Med 1 each 09/16/21 10:50 09/17/21 09:09 Home Medication-Viibyrd 20 Mg BY MOUTH 10/16/21 10:49 1 each DAILY SUN Administration Sodium Chloride 1,000 mls @ 50 mls/hr 09/16/21 06:00 09/17/21 09:07 Normal Saline Iv IV CONT 50 mls/hr .Q20H SUN Administration Piperacillin/Tazobactam/Dextrose 3.375 gm in 50 mls @ 100 mls/hr 09/16/21 06:00 09/17/21 06:17 Zosyn 3.375 Gm/D5w 50ml Pm IVPB Infused Q6H SUN Infusion Morphine Sulfate 4 mg 09/16/21 02:55 09/16/21 04:52 Morphine Sulfate (*Crx) 4 Mg/Ml Inj IV PUSH 4 mg Q4H PRN Administration Pain Rated 7-10 Ondansetron HCl 4 mg 09/16/21 00:23 Ondansetron Inj 4 Mg/2 Ml Vial IV PUSH Q4H PRN Nausea Valacyclovir HCl 500 mg 09/16/21 18:00 09/16/21 17:18 Valacyclovir Hcl 500 Mg Tablet PO 500 mg QPM SUN Administration Radiology Results: ITS Impressions Abdomen/Pelvis CT 09/15/21 22:55 IMPRESSION: Acute descending/sigmoid colonic diverticulitis with microperforation. No abscess. Labs Labs: Laboratory Results - last 24 hr 09/17/21 09/17/21 05:50 05:50 WBC 11.6 H RBC 4.42 L Hgb 14.0 Hct 42.0 MCV 95.0 MCH 31.7 MCHC 33.3 RDW 15.5 H Plt Count 176 MPV 10.2 Immature Gran % (Auto) 0.5
[2021-09-17 14:00] VITALS: BP 134/81; PULSE 99; RESP 16; TEMP 36.3; O2SAT 99
[2021-09-17] MEDS: buPROPion HCL XL (24 HR) 150 MG TABCR PO (17:17)
[2021-09-17] MEDS: valACYclovir HCL 500 MG TABLET PO (17:17)
[2021-09-17 20:00] VITALS: PULSE 95; RESP 20; O2SAT 99
[2021-09-17 22:00] VITALS: BP 135/81; PULSE 95; RESP 20; TEMP 36.2; O2SAT 98
[2021-09-17 22:39] VITALS: O2SAT 99
[2021-09-18 06:00] VITALS: BP 136/66; PULSE 83; RESP 20; TEMP 36.1; O2SAT 99
[2021-09-18 06:11] LABS: Hematocrit 44.9 % (42.0-52.0); Hemoglobin 14.9 g/dL (14.0-18.0); Mean Corpuscular HGB Conc 33.2 g/dl (32-36); Mean Corpuscular Hemoglobin 31.4 pg (26-34); Mean Corpuscular Volume 94.5 fl (80-100); Mean Platelet Volume 10.4 fl (7.4-10.4); Platelet Count Result 193 k/mm3 (150-375); Red Blood Count 4.75 M/mm3 (4.6-6.20)
[2021-09-18 06:40] LABS: Anion Gap 6 mmol/L (8-16); Blood Urea Nitrogen 7 mg/dL (9-20); Calcium 8.4 mg/dL (8.4-10.2); Carbon Dioxide 30 mmol/L (22-30); Chloride 100 mmol/L (98-107); Estimated CRCL calculation 64 ml/min; Estimated Glomerular Filt Rate > 60; Glucose 108 mg/dL (65-110); Potassium 3.7 mmol/L (3.4-5.0); Sodium 136 mmol/L (137-145)
[2021-09-18 08:15] VITALS: RESP 20; O2SAT 100
[2021-09-18 08:36] VITALS: O2SAT 98
[2021-09-18 14:00] VITALS: BP 146/87; PULSE 65; RESP 18; TEMP 36.5; O2SAT 100
--- NOTE | 2021-09-18 14:06 | PM.IMPN ---
Progress Note: A&P Assessment and Plan (1) Diverticulitis: Code(s): K57.92 - Diverticulitis of intestine, part unspecified, without perforation or abscess without bleeding Status: Acute Additional Plan # acute descending/ sigmoid colonic diverticulitis with microperforation. No abscess. Started on IV Zosyn IV analgesics. Antiemetics. NPO. IV fluids. General surgery consultation. appreciate their recommendation. Starting on clear liquids 09/17/2021 the further advancement per General surgery. # history of diverticulitis in the past # anxiety depression # BPH # history of herpes infection # DVT prophylaxis Lovenox # code status full code Subjective Date/time seen: 09/18/21 14:06 Interval history: no overnight events. Abdomen is sore but improving slowly tolerated clear liquids yesterday Reuben seen surgeon yet today. No nausea vomiting no fever chills Review of Systems Review of Systems: All systems reviewed & are unremarkable except as noted in HPI and below ( HPI) Exam Narrative: GENERAL: Well-appearing, well-nourished, and in no acute distress. HEAD: Normocephalic, atraumatic. EYES: PERRLA and EOMI. ENT: Nares clear, no rhinorrhea or epistaxis. Mucous membranes moist. NECK: Supple. No adenopathy or masses. CHEST: Clear to auscultation. No respiratory distress. No wheezes rales or rhonchi HEART: Regular rate and rhythm. No murmur heard. Normal peripheral pulses. ABDOMEN: Soft, left lower quadrant mild tenderness, mild guarding in left lower quadrant, nondistended, normal active bowel sounds. EXTREMITIES: Normal range of motion. No edema. SKIN: Warm, dry, no rash. NEURO: No focal deficits. Alert and oriented x3. PSYCH: Normal mood and affect. Objective Data Vital Signs Vital Signs: Vital Signs - 24 hr 09/17/21 20:00 09/17/21 22:00 09/17/21 22:39 Temperature 97.1 F L Pulse Rate 95 95 Respiratory Rate 20 20 Blood Pressure 135/81 Pulse Oximetry 99 98 99 09/18/21 06:00 09/18/21 08:15 09/18/21 08:36 Temperature 97.0 F L Pulse Rate 83 Respiratory Rate 20 20 Blood Pressure 136/66 Pulse Oximetry 99 100 98 Intake/Output Intake/Output: Intake & Output 09/15/21 09/16/21 09/17/21 09/18/21 23:59 23:59 23:59 23:59 Intake Total 3275 3070 2230 Balance 3275 3070 2230 Meds/Results Medications: Active Medications Generic Name Dose Route Start Last Admin Trade Name Freq PRN Reason Stop Dose Admin Acetaminophen 650 mg 09/17/21 08:56 Acetaminophen 325 Mg Tablet PO Q4H PRN Mild Pain (1-3) or Fever Hydrocodone Bitart/Acetaminophen 1 tab 09/17/21 08:56 Hydrocodone/Acetaminophen (*Crx) 5-325 Mg Tablet PO Q4H PRN Pain Rated 4-6 Bupropion HCl 150 mg 09/16/21 18:00 09/17/21 17:17 Bupropion Hcl Xl (24 Hr) 150 Mg Tabcr PO 150 mg QPM SUN Administration Home Med 1 each 09/16/21 10:50 09/18/21 08:20 Home Medication-Viibyrd 20 Mg BY MOUTH 10/16/21 10:49 1 each DAILY SUN Administration Piperacillin/Tazobactam/Dextrose 3.375 gm in 50 mls @ 100 mls/hr 09/16/21 06:00 09/18/21 11:48 Zosyn 3.375 Gm/D5w 50ml Pm IVPB Infused Q6H SUN Infusion Morphine Sulfate 4 mg 09/16/21 02:55 09/16/21 04:52 Morphine Sulfate (*Crx) 4 Mg/Ml Inj IV PUSH 4 mg Q4H PRN Administration Pain Rated 7-10 Ondansetron HCl 4 mg 09/16/21 00:23 Ondansetron Inj 4 Mg/2 Ml Vial IV PUSH Q4H PRN Nausea Valacyclovir HCl 500 mg 09/16/21 18:00 09/17/21 17:17 Valacyclovir Hcl 500 Mg Tablet PO 500 mg QPM SUN Administration Radiology Results: ITS Impressions Abdomen/Pelvis CT 09/15/21 22:55 IMPRESSION: Acute descending/sigmoid colonic diverticulitis with microperforation. No abscess. Labs Labs: Laboratory Results - last 24 hr 09/18/21 09/18/21 05:53 05:53 WBC 10.0 RBC 4.75 Hgb 14.9 Hct 44.9 MCV 94.5 MCH 31.4 MCHC 33.2 RDW 15.0 H Plt Count 193 MPV 10.4 Sod
--- NOTE | 2021-09-18 15:45 | PM.DS ---
DS: Admitting Diagnosis Discharge Date 09/18/2021 Admitting Diagnosis Diverticulitis DS: Discharge Diagnosis Discharge Diagnosis (1) Diverticulitis: Code(s): K57.92 - Diverticulitis of intestine, part unspecified, without perforation or abscess without bleeding Status: Acute DS: Summary Hospital Course Hospital Course: # acute descending/ sigmoid colonic diverticulitis with microperforation. No abscess. Started on IV Zosyn IV analgesics. Antiemetics. Started with NPO status. IV fluids. General surgery consultation. appreciate their recommendation. Patient could to to improve with conservative management. Patient was started on clear liquid diet on 3 status and was further advanced which he tolerated well. His pain continued to improve and was okayed by surgery to be discharged and follow-up as an outpatient basis. He will follow-up with General surgery in 1-2 weeks. He will need colonoscopy once this acute issue resolves. As an outpatient basis. He will continue antibiotic for 10 more days with Augmentin and Flagyl # history of diverticulitis in the past # anxiety depression # BPH # history of herpes infection # DVT prophylaxis Lovenox # code status full code Time Spent with Patient Time attestation: Total time spent providing and/or coordinating discharge services: 40 minutes Exam Narrative: GENERAL: Well-appearing, well-nourished, and in no acute distress. HEAD: Normocephalic, atraumatic. EYES: PERRLA and EOMI. ENT: Nares clear, no rhinorrhea or epistaxis. Mucous membranes moist. NECK: Supple. No adenopathy or masses. CHEST: Clear to auscultation. No respiratory distress. No wheezes rales or rhonchi HEART: Regular rate and rhythm. No murmur heard. Normal peripheral pulses. ABDOMEN: Soft, left lower quadrant mild tenderness, mild guarding in left lower quadrant, nondistended, normal active bowel sounds. EXTREMITIES: Normal range of motion. No edema. SKIN: Warm, dry, no rash. NEURO: No focal deficits. Alert and oriented x3. PSYCH: Normal mood and affect. DS: Data Data Completed and Pending Labs on day of discharge: Labs from last 24 hours 09/18/21 09/18/21 05:53 05:53 WBC 10.0 RBC 4.75 Hgb 14.9 Hct 44.9 MCV 94.5 MCH 31.4 MCHC 33.2 RDW 15.0 H Plt Count 193 MPV 10.4 Sodium 136 L Potassium 3.7 Chloride 100 Carbon Dioxide 30 Anion Gap 6 L BUN 7 L D Creatinine 1.10 Estim Creat Clear Calc 64 Estimated GFR > 60 Glucose 108 Calcium 8.4 Preliminary micro results at discharge 09/16/21 00:20 Blood Culture - Preliminary Blood 09/16/21 00:20 Blood Culture - Preliminary Blood Imaging Radiologist's impression: ITS Impressions Abdomen/Pelvis CT 09/15/21 22:55 IMPRESSION: Acute descending/sigmoid colonic diverticulitis with microperforation. No abscess. Discharge Plan Discharge Attending physician on discharge: Parviz Anderson Consulting providers: Pierre Felix Discharging Clinician: Parviz Anderson Anticipated Discharge Date/Time: 09/18/21 15:21 Patient Disposition: Home, Self-Care Activity: as tolerated Diet: low fiber Patient Instructions: Antibiotic Form Stand Alone Forms: General Discharge Information Follow-up/Referrals: Siva,Chepe Correa MD [Primary Care Provider] - 1 Week Pierre Felix DO [Physician] - 2 Weeks Discharge Medications: New hydrocodone-acetaminophen 5-325 mg Tablet 1 tablet PO Q4H PRN (Reason: Pain Rated 4-6) Qty: 30 RF: 0 metronidazole 500 mg tablet 500 mg PO Q8H Qty: 30 RF: 0 amoxicillin-pot clavulanate 875-125 mg tablet 1 tablet PO Q12H Qty: 20 RF: 0 Continued valacyclovir 500 mg tablet 500 mg PO QPM RF: 0 bupropion HCl 150 mg tablet extended release 24 hr 150 mg PO QPM RF: 0 Viibryd 20 mg tablet 20 mg PO DAILY RF: 0 Date of admission: 09/17/21 10:49 Primary Care Provider: Siva,Kennedi
--- NOTE | 2021-09-18 16:22 | PM.PNGS ---
Progress Note: A&P Assessment and Plan (1) Diverticulitis of large intestine with perforation without abscess or bleeding: Code(s): K57.20 - Diverticulitis of large intestine with perforation and abscess without bleeding Status: Acute Assessment and Plan: Doing well. OK to discharge today. Recommend low fiber diet for 2 weeks and 10 more days of oral antibiotics. He has an established GI doc, therefore he may follow up with him for continued care. Recommend colonoscopy in 6-8 weeks. Follow up with me as needed. Subjective Subjective Date/Time Seen: 09/18/21 16:22 Interval history: Doing well. Pain almost resolved. Tolerating diet. Bowels moving. No fevers. Exam GI: Inspection: non-distended GI Palp: Yes Soft to palpation and Yes Tenderness to palpation present (GI) (minimal LLQ) Percussion: Yes normal to percussion Auscultation: normal bowel sounds Objective Data Vital Signs Vital Signs: Vital Signs - 24 hr 09/17/21 20:00 09/17/21 22:00 09/17/21 22:39 Temperature 36.2 C L Pulse Rate 95 95 Respiratory Rate 20 20 Blood Pressure 135/81 Pulse Oximetry 99 98 99 09/18/21 06:00 09/18/21 08:15 09/18/21 08:36 Temperature 36.1 C L Pulse Rate 83 Respiratory Rate 20 20 Blood Pressure 136/66 Pulse Oximetry 99 100 98 09/18/21 14:00 Temperature 36.5 C Pulse Rate 65 Respiratory Rate 18 Blood Pressure 146/87 H Pulse Oximetry 100 Intake/Output Intake/Output: Intake & Output 09/15/21 09/16/21 09/17/21 09/18/21 23:59 23:59 23:59 23:59 Intake Total 3275 3070 2230 Balance 3275 3070 2230 Meds/Results Medications: Active Medications Generic Name Dose Route Start Last Admin Trade Name Freq PRN Reason Stop Dose Admin Acetaminophen 650 mg 09/17/21 08:56 Acetaminophen 325 Mg Tablet PO Q4H PRN Mild Pain (1-3) or Fever Hydrocodone Bitart/Acetaminophen 1 tab 09/17/21 08:56 Hydrocodone/Acetaminophen (*Crx) 5-325 Mg Tablet PO Q4H PRN Pain Rated 4-6 Bupropion HCl 150 mg 09/16/21 18:00 09/17/21 17:17 Bupropion Hcl Xl (24 Hr) 150 Mg Tabcr PO 150 mg QPM SUN Administration Home Med 1 each 09/16/21 10:50 09/18/21 08:20 Home Medication-Viibyrd 20 Mg BY MOUTH 10/16/21 10:49 1 each DAILY SUN Administration Piperacillin/Tazobactam/Dextrose 3.375 gm in 50 mls @ 100 mls/hr 09/16/21 06:00 09/18/21 11:48 Zosyn 3.375 Gm/D5w 50ml Pm IVPB Infused Q6H SUN Infusion Morphine Sulfate 4 mg 09/16/21 02:55 09/16/21 04:52 Morphine Sulfate (*Crx) 4 Mg/Ml Inj IV PUSH 4 mg Q4H PRN Administration Pain Rated 7-10 Ondansetron HCl 4 mg 09/16/21 00:23 Ondansetron Inj 4 Mg/2 Ml Vial IV PUSH Q4H PRN Nausea Valacyclovir HCl 500 mg 09/16/21 18:00 09/17/21 17:17 Valacyclovir Hcl 500 Mg Tablet PO 500 mg QPM SUN Administration Radiology Results: ITS Impressions Abdomen/Pelvis CT 09/15/21 22:55 IMPRESSION: Acute descending/sigmoid colonic diverticulitis with microperforation. No abscess. Labs Labs: Laboratory Results - last 24 hr 09/18/21 09/18/21 05:53 05:53 WBC 10.0 RBC 4.75 Hgb 14.9 Hct 44.9 MCV 94.5 MCH 31.4 MCHC 33.2 RDW 15.0 H Plt Count 193 MPV 10.4 Sodium 136 L Potassium 3.7 Chloride 100 Carbon Dioxide 30 Anion Gap 6 L BUN 7 L D Creatinine 1.10 Estim Creat Clear Calc 64 Estimated GFR > 60 Glucose 108 Calcium 8.4
[2021-09-18] MEDS: valACYclovir HCL 500 MG TABLET PO (17:29)
[2021-09-18] MEDS: buPROPion HCL XL (24 HR) 150 MG TABCR PO (17:29)
== END 2021-09-18 19:15 | disposition home or self-care (01) | DRG 392 ==
LOC: ANHED 23:16 → ANH2MED 09-16 01:09
PROVIDERS: Surgery; Admitting Provider Internal Medicine; Emergency Provider Nurse Practitioner Family; PCP Internal Medicine; Visit Provider Internal Medicine
DX: K57.20 Diverticulitis of large intestine with perforation and abscess without bleeding (principal); Z23 Encounter for immunization; N40.0 Benign prostatic hyperplasia without lower urinary tract symptoms; F41.9 Anxiety disorder, unspecified; F32.A Depression, unspecified; Z90.49 Acquired absence of other specified parts of digestive tract
CPT/HCPCS: 36415; 74176; 80048; 80053; 81003; 83690; 85025; 85027; 87040; 90471; 90653; 96361; 96365; 96366; 96375; 99285; A9270; G0008; G0378; J2060; J2270; J2543; J7030

== ENCOUNTER 2022-08-10 09:46 | Outpatient (CLI) | payer OTHER, SELFPAY | END 2022-08-10 09:47 | disposition home or self-care (01) | LOC: ANHLAB 09:47 | PROVIDERS: PCP Internal Medicine; Visit Provider Surgery | DX: K40.90 Unilateral inguinal hernia, without obstruction or gangrene, not specified as recurrent (principal); Z01.818 Encounter for other preprocedural examination | CPT/HCPCS: 36415; 86850; 86900; 86901 ==

== ENCOUNTER 2022-08-21 01:06 | Day surgery (SDC) | payer OTHER, SELFPAY ==
[2022-08-09 14:45] VITALS: BMI 28.5
--- NOTE | 2022-08-09 14:46 | PC.NURSE ---
Report to the Outpatient Waiting Room, entrance under the green pavilion located off [address], at time ____ on date . Planned Procedure Time: . Time changes happen often and if your time is changed the preop area will call you the afternoon before. - You and your visitor will be asked to self-screen and do not enter if you have any COVID symptoms. - Only one visitor is requested with a max of two and NO children visitors are allowed at this time. - The patient visitor may be requested to leave or wait in car when not with patient due to distancing restrictions. - A mask is optional within the hospital at this time. Patients may have clear liquids (water, carbonated beverages, clear teas, apple juice) until 3 hours prior to surgery with a maximum of 20 ounces. - No food from midnight until time of surgery - Infants may have breast milk until 4 hours before surgery, infant formula 6 hours prior to surgery. - Children will be allowed to drink immediately following surgery. If applicable, please bring a bottle or sippy cup to assist with drinking. Juice, water, soda, and popsicles are readily available. For infants on formula, please bring formula the day of surgery. Pacifiers are allowed. Take the following medications with a SIP of water the morning of surgery: DO NOT STOP ANY OF YOUR OTHER PRESCRIPTION MEDICATIONS PRIOR TO SURGERY ?EXCEPT THE FOLLOWING Medications to discontinue per physician Date to take last dose Please no make-up, nail taiwanese, hairspray, perfume, deodorant, or body powder the day of surgery. No jewelry (including any body piercings) or valuables the day of surgery, leave them at home. Please take a shower or bath the night before, or the morning of, surgery with an antibacterial soap. Wear comfortable, loose fitting clothing. Children are encouraged to wear pajamas. - Jewelry must be removed prior to entering the operating room. Rings and piercings that are not removed may be cut off. - The hospital will not accept responsibility for valuables. - Please leave all valuables, including medications, at home the day of surgery. If you are going home after surgery, a licensed local driver must drive you home. - NO public transportation without another adult if you receive anesthesia. - We recommend that an adult stay with you for 24 hours following discharge. - We also recommend that you do not drive, make important decision, drink alcoholic beverages, or take any drugs that were not prescribed by your health care provider for at least 24 hours after your discharge time. For Pediatric surgeries, we recommend two adults accompany the child home. Follow any additional instructions given to you from your surgeon. If you or anyone in your household have experienced Covid symptoms in the past week, please notify your surgeon or the nurse liaison at the phone number below for possible testing. Telephone instructions given to and asked if any additional questions and then verbalized understanding. Patient advised to call surgeon office or pre surgery nurse liaison [phone] if any additional questions.
--- NOTE | 2022-08-09 14:46 | PC.NURSE ---
Report to the Outpatient Waiting Room, entrance under the green pavilion located off [facility], at time _0600_ on date _08/21/22__. Planned Procedure Time: _0730 _. Time changes happen often and if your time is changed the preop area will call you the afternoon before. - You and your visitor will be asked to self-screen and do not enter if you have any COVID symptoms. - Only one visitor is requested with a max of two and NO children visitors are allowed at this time. - The patient visitor may be requested to leave or wait in car when not with patient due to distancing restrictions. - A mask is optional within the hospital at this time. Patients may have clear liquids (water, carbonated beverages, clear teas, apple juice) until 3 hours prior to surgery with a maximum of 20 ounces. - No food from midnight until time of surgery - Infants may have breast milk until 4 hours before surgery, infant formula 6 hours prior to surgery. - Children will be allowed to drink immediately following surgery. If applicable, please bring a bottle or sippy cup to assist with drinking. Juice, water, soda, and popsicles are readily available. For infants on formula, please bring formula the day of surgery. Pacifiers are allowed. Take the following medications with a SIP of water the morning of surgery: ____NONE____ DO NOT STOP ANY OF YOUR OTHER PRESCRIPTION MEDICATIONS PRIOR TO SURGERY ?EXCEPT THE FOLLOWING Medications to discontinue per physician NONE Date to take last dose Please no make-up, nail ukrainian, hairspray, perfume, deodorant, or body powder the day of surgery. No jewelry (including any body piercings) or valuables the day of surgery, leave them at home. Please take a shower or bath the night before, or the morning of, surgery with an antibacterial soap/ HIBICLENS SOAP. Wear comfortable, loose fitting clothing. Children are encouraged to wear pajamas. - Jewelry must be removed prior to entering the operating room. Rings and piercings that are not removed may be cut off. - The hospital will not accept responsibility for valuables. - Please leave all valuables, including medications, at home the day of surgery. If you are going home after surgery, a licensed [place] driver must drive you home. - NO public transportation without another adult if you receive anesthesia. - We recommend that an adult stay with you for 24 hours following discharge. - We also recommend that you do not drive, make important decision, drink alcoholic beverages, or take any drugs that were not prescribed by your health care provider for at least 24 hours after your discharge time. For Pediatric surgeries, we recommend two adults accompany the child home. Follow any additional instructions given to you from your surgeon. If you or anyone in your household have experienced Covid symptoms in the past week, please notify your surgeon or the nurse liaison at the phone number below for possible testing. Telephone instructions given to patient__and asked if any additional questions and then verbalized understanding. Patient advised to call surgeon office or pre surgery nurse liaison [phone] if any additional questions.
--- NOTE | 2022-08-20 14:51 | P.PNAN_ITS ---
Anes - Initial Pre Proc Eval Procedure: Operation Date: 08/21/22 07:30 Proposed Procedures p Laparoscopic Left Inguinal Hernia Repair with Mesh, Davinci Assisted - Pierre Felix DO Date/Time: 08/20/22 14:51 Surgeon: Pierre Felix DO Pre Op Diagnosis: Lt Ing Hernia Patient Data Age: 56 Gender: M Height: 1.73 m Weight: 85 kg Allergies Allergy/AdvReac Type Severity Reaction Status Date / Time No Known Allergies Allergy Verified 08/09/22 14:39 Home Medications Medication Instructions Recorded Confirmed Type testosterone cypionate 200 mg/mL 150 mg IM WEEKLY 12/12/21 08/21/22 History intramuscular oil valacyclovir 500 mg tablet 500 mg PO QPM #90 tabs 05/07/22 08/21/22 Rx vilazodone 20 mg tablet (Viibryd) 20 mg PO DAILY #90 tabs 05/07/22 08/21/22 Rx bupropion HCl 150 mg 24 hr tablet, 150 mg PO QPM #90 tabs 08/13/22 08/21/22 Rx extended release Patient hx anesthesia problems: none Family hx anesthesia problems: none Results Review: All pre-operative results and documents have been reviewed as part of the pre- operative evaluation. [facility] Past Medical History Medical History Anxiety BPH (benign prostatic hyperplasia) Bronchitis Depression Finger fracture Herpes Surgical History Surgical History History of appendectomy History of ear surgery S/P excision of lipoma S/P hernia repair Family History Family History Father Heart disease Family history of depression Unknown Breast cancer Other Family history of allergic disorder Social History Social History (Updated 07/31/22 @ 15:11 by Leidy Alcocer CMA) Smoking status: Never smoker Alcohol intake: never Substance use: never Substance use type: does not use Lack of Transportation: No Lack of Food: Never True Current Housing: I Have Housing Concerned About Future Housing: No Difficulty Paying Gas/Electric Bills: No Difficulty Paying for Meds: No Currently Unemployed: No Education: Master's Degree or Higher Difficulty w/ Childcare or Family Care: No Living arrangements: with family Spiritual care concerns: No Anes - Eval Final PreProcedure Day of Procedure 08/20/22 14:51 Patient weight: normal Heart: regular rate and rhythm Lungs: clear to auscultation Airway: Mallampati scale class II Neurological: alert and oriented Last oral intake: >/= 8 hours ASA classification: II Emergent: no Anesthetic plan: proceed Anesthesia type and monitoring: general ETT and standard monitoring Results Review: All pre-operative results and documents have been reviewed as part of the pre- operative evaluation. Informed Consent: The patient's anesthetic plan and its attendant risks and benefits were discussed with the patient/family/POA. Questions were solicited and answers provided to the satisfaction of the patient/family/POA.
[2022-08-21] VITALS (8 sets, daily range): BP systolic 102–147; BP diastolic 62–91; PULSE 68–86; RESP 14–20; TEMP 36.6–36.9; O2SAT 97–100
[2022-08-21] MEDS: ACETAMINOPHEN 500 MG TABLET 1000 MG PO (06:37)
[2022-08-21] MEDS: LACTATED RINGERS 1,000 ML 30 ML IV CONT ×3 (06:40→10:14)
[2022-08-21] MEDS: KETOROLAC 15 MG/ML VIAL (*BKC) IV PUSH (06:45)
--- NOTE | 2022-08-21 07:13 | PM.IMHP ---
H&P: HPI History of Present Illness Date/Time: 08/21/22 07:13 Chief Complaint: left inguinal hernia Narrative: 56 yo man presents for left inguinal hernia repair. He denies any changes since last seen in office. Review of Systems Review of Systems: All systems reviewed & are unremarkable except as noted in HPI and below Constitutional: Constitutional: Denies chills, Denies fever(s), Denies headache(s) and Denies weight loss Eyes: Eyes: Denies change in vision ENT: Denies dizziness, Denies headache(s), Denies neck mass and Denies throat swelling Cardiovascular: Cardiovascular: Denies chest pain, Denies lightheadedness and Denies dyspnea Respiratory: Respiratory: Denies cough, Denies dyspnea and Denies wheezing Gastrointestinal: Gastrointestinal: Denies abdominal pain, Denies change in bowel habits, Denies nausea and Denies vomiting Genitourinary: Genitourinary: Denies hematuria and Denies dysuria Musculoskeletal: Musculoskeletal: Reports as per HPI Integumentary/Breasts: Skin/Breast: Reports as per HPI Neurologic: Denies dizziness and Denies headache(s) Allergic/Immunologic: Allergic/Immunologic: Denies throat swelling and Denies wheezing [facility] Past Medical History Medical History Anxiety BPH (benign prostatic hyperplasia) Bronchitis Depression Finger fracture Herpes Surgical History Surgical History History of appendectomy History of ear surgery S/P excision of lipoma S/P hernia repair Family History Family History Father Heart disease Family history of depression Unknown Breast cancer Other Family history of allergic disorder Social History Social History (Updated 07/31/22 @ 15:11 by Leidy Alcocer CMA) Smoking status: Never smoker Alcohol intake: never Substance use: never Substance use type: does not use Lack of Transportation: No Lack of Food: Never True Current Housing: I Have Housing Concerned About Future Housing: No Difficulty Paying Gas/Electric Bills: No Difficulty Paying for Meds: No Currently Unemployed: No Education: Master's Degree or Higher Difficulty w/ Childcare or Family Care: No Living arrangements: with family Spiritual care concerns: No Meds Home Medications and Allergies Home Medications Medication Instructions Recorded Confirmed Type testosterone cypionate 200 mg/mL 150 mg IM WEEKLY 12/12/21 08/21/22 History intramuscular oil valacyclovir 500 mg tablet 500 mg PO QPM #90 tabs 05/07/22 08/21/22 Rx vilazodone 20 mg tablet (Viibryd) 20 mg PO DAILY #90 tabs 05/07/22 08/21/22 Rx bupropion HCl 150 mg 24 hr tablet, 150 mg PO QPM #90 tabs 08/13/22 08/21/22 Rx extended release Allergies Allergy/AdvReac Type Severity Reaction Status Date / Time No Known Allergies Allergy Verified 08/09/22 14:39 Vital Signs Vital Signs - 24 hr 08/21/22 06:24 Temperature 36.9 C Pulse Rate 70 Respiratory Rate 20 Blood Pressure 147/91 H Pulse Oximetry 97 Oxygen Delivery Room Air Exam Const: General: no acute distress and alert Orientation/consciousness: patient oriented x3 HENMT: Head: normocephalic and atraumatic Ears: hearing grossly normal bilaterally Face/Nose/Sinus: Normal nares present Mouth: Yes Normal oral and palatal mucosa present Eyes: Periorbital: periorbital findings normal Sclera: sclerae normal EOM: EOMs intact bilaterally Neck: Neck: normal visual inspection, no lymphadenopathy and trachea midline Chest: Chest palpation & inspection: normal inspection of the chest Resp: Effort & Inspection: normal respiratory effort Auscultation: clear to auscultation bilaterally Cardio: Jugular venous distension: no JVD Rate: regular rate Rhythm: regular rhythm Heart sounds: S1 normal heart sound present and S2 normal heart suyapa
--- NOTE | 2022-08-21 07:15 | WPDHPUPDATE1 ---
History and Physical Update Update Date/Time: 08/21/22 07:15 History and Physical has been reviewed, including an updated exam of the patient. There are NO changes in the patient's condition. Risks, benefits, and alternatives have been discussed and questions answered. Patient agrees to proceed with procedure.
[2022-08-21] MEDS: ceFAZolin 2 GM/D5W 50 ML 2 GM/50 ML BAG IVPB (07:27)
[2022-08-21] MEDS: BUPIVACAINE/EPINEPHRINE 0.5% 50 ML VIAL 30 ML INFILTRATE (08:03)
--- NOTE | 2022-08-21 08:39 | W.PM.PROC2 ---
Procedure Note - Detailed Date of Procedure 08/21/22 Pre-op Diagnosis Left inguinal hernia Post-op Diagnosis Same ( indirect left inguinal hernia) Procedure Performed Laparoscopic left inguinal hernia repair with mesh, da [place] assisted Surgeon Pierre Felix, Anesthesia General and Local (0.5% bupivacaine with epinephrine) Indications this is a 56-year-old man who presents with occasional left groin pain that he has been experiencing for about the past year. He was seen by his urologist and a small left inguinal hernia was identified on physical exam. Has a prior history robotic assisted laparoscopic right inguinal hernia repair. He still occasionally gets some right groin pain but mostly complains of a discomfort on the left side. Discussions were made with the patient about treatment options and decision was made to proceed with robotic assisted laparoscopic left inguinal hernia repair with mesh. Findings Laparoscopic left inguinal hernia repair was performed. Upon inspecting the abdomen laparoscopically, the patient was found to have a small indirect left inguinal hernia. I was able to clearly visualize the right inguinal region and the prior mesh repair still appeared intact and there was no evidence of a recurrent right inguinal hernia. A robotic transabdominal preperitoneal approach was utilized to repair the left inguinal hernia. A large left Bard 3DMax mid mesh was placed within the preperitoneal pocket overlying the entire left myopectineal orifice. No specimens were obtained for pathology. Description of Procedure Procedure as well as risks, benefits, and alternatives were discussed with the patient. Written consent was obtained and placed in chart prior to procedure. Patient was brought back to surgical suite. He was placed supine on operating table. Time-out was done to confirm patient and procedure. He was then intubated by Anesthesia Department. His abdomen was prepped and draped in sterile fashion using chlorhexidine prep. 0.5% bupivacaine with epinephrine was infiltrated at each location for incision. An 8 mm incision was made in the left lateral abdomen, and a 5 mm Optiview trocar was advanced through the abdominal layers under direct visualization. Once inside the abdominal cavity, carbon dioxide insufflation was used to create a pneumoperitoneum. A camera was inserted and the abdominal cavity was inspected. The patient was placed in slight Trendelenburg position. An 8 millimeter incision was made on the right lateral abdomen and an 8 millimeter trocar was inserted under direct visualization. Another 8 millimeter incision was made just superior to the umbilicus and an 8 millimeter trocar was inserted under direct visualization. The 5 mm port was then removed and this was replaced with another 8 mm robotic port. The robotic arms were brought up to the patient's bedside and secured to the ports. The camera and instruments were inserted. I then moved over to the robotic console and took control of the camera and instruments. After careful inspection of the abdominal cavity, I began scoring the peritoneum along the left lower quadrant using scissors with electrocautery. The preperitoneal plane was entered and this was carefully dissected caudally along the inferior epigastric vessels. Careful dissection with scissors with electrocautery and blunt dissection was used to continue this dissection. I dissected far enough laterally to allow for mesh placement, and also dissected medially to identify the pubic arch and Jorge's ligament. The hernia sac was identified and carefully dissected posteriorly. The cord contents were also identified and the peritoneum was carefully dissected far enough posteriorly to allow for mesh placement. Once an adequate pocket was created, I then placed the mesh within the preperitoneal pocket and carefully unfolded it. The mesh was centered on the hernia defect with adequate overlap circumfere
[2022-08-21] MEDS: oxyCODONE HCL (*CRX) 5 MG TAB IR PO (11:16)
== END 2022-08-21 11:42 | disposition home or self-care (01) ==
PROVIDERS: PCP Internal Medicine; Visit Provider Surgery
PROC: 8E0Y4CZ Robotic Assisted Procedure of Lower Extremity, Percutaneous Endoscopic Approach (ICD-10-PCS; CPT 49650; principal; 2022-08-21 07:30)
DX: K40.90 Unilateral inguinal hernia, without obstruction or gangrene, not specified as recurrent (principal); N40.0 Benign prostatic hyperplasia without lower urinary tract symptoms; F32.A Depression, unspecified; B00.9 Herpesviral infection, unspecified
CPT/HCPCS: 49650; S2900; 36415; 86850; 86900; 86901; A9270; C1781; J0690; J1100; J1885; J2250; J2405; J2704; J3010; J7120

== ENCOUNTER 2023-10-25 08:48 | Outpatient (CLI) | payer BC, SELFPAY ==
[2023-10-28 15:10] VITALS: BMI 28.7
--- NOTE | 2023-10-28 15:10 | WPDHOMESLEEP ---
Sleep Study - Home Unattended Date of Study: 10/25/23 Ordering Provider: JEMIMA Oliveira-David Interpreting Provider: Juli Stanton, DO Home Sleep Study Type: Watch PAT Height: 1.73 m Weight: 85.729 kg Body Mass Index: 28.7 Neck Circumference (inches): 16 [place]: 11 Reason for Sleep Study Difficulty staying asleep Sleep History The patient is a 57-year-old male with anxiety, depression, hypogonadism and benign prostatic hyperplasia that had a sleep study ordered by his primary care for evaluation of sleep apnea. The patient occasionally awakens from sleep short of breath. He frequently awakens at night with heartburn. He frequently snores and is frequently loud enough that others complain. He occasionally has trouble sleeping when he has a cold. He occasionally wakes up gasping for air throughout the night. He occasionally has breathing problems at night observed by himself or others. He rarely sweats excessively at night. He denies having heart palpitations or irregular heartbeats during the night. He rarely falls asleep during the day but never while driving. He denies sleep paralysis, cataplexy and hypnagogic / hypnopompic hallucinations. He rarely has trouble at school or work due to sleepiness. He rarely feels afraid of going to sleep. He occasionally has nightmares. He frequently remembers his dreams. He frequently has thoughts racing through his mind. He frequently feels sad or depressed. He constantly has anxiety. He frequently has muscular tension. He occasionally notices parts of his body jerk. He rarely kicks during the night. He denies having crawling and aching feelings in his legs. He rarely awakens with leg pain during the he denies grinding his teeth during sleep and denies awakening with morning jaw pain. He is rarely bothered by pain during the day and rarely awakened by pain during the night. He rarely wakes up feeling stiff in the morning. He occasionally wakes up with sore or achy muscles. He denies waking up with pain in the neck, spine or other joints. He goes to bed at 10:00 p.m. on weekdays and between 10-11 p.m. on the weekends. He is able to fall asleep immediately. He wakes up 4-6 times throughout the night for unknown reasons and it can take 5-20 minutes to fall back asleep. He wakes up at 6:00 a.m. on weekdays and at 7:00 a.m. on the weekends. He typically gets 6 hours of sleep per night. He will stay in bed for 5 minutes after waking up in the morning. He currently lives with his and adult child. He denies consuming any caffeinated beverages within 2 hours of bedtime. He denies engaging in physical exercise before bedtime. He will read watch television before falling asleep. He denies taking naps in afternoon or the evening. There is some caffeine in his water additive that he drinks daily. He denies tobacco, alcohol and recreational drug use. [facility] Past Medical History Medical History Anxiety BPH (benign prostatic hyperplasia) Bronchitis Depression Diverticulitis Diverticulitis of large intestine with perforation without abscess or bleeding Encounter for other specified surgical aftercare Encounter for wellness examination Finger fracture Herpes Reducible left inguinal hernia Screening for lipoid disorders Screening for metabolic disorder Screening for prostate cancer Sepsis Spermatocele Surgical History Surgical History History of appendectomy History of ear surgery History of left inguinal hernia repair 08/21/2022 - Laparoscopic left inguinal hernia repair with mesh, da [place] assisted S/P excision of lipoma S/P hernia repair Family History Family History Father Heart disease Family history of depression Unknown Breast cancer Other Family history of allergic disorder So
== END 2023-10-28 07:30 | disposition home or self-care (01) ==
LOC: ANHCSM 08:48
PROVIDERS: PCP Clinical Nurse Specialist; Visit Provider Clinical Nurse Specialist
DX: G47.33 Obstructive sleep apnea (adult) (pediatric) (principal)
CPT/HCPCS: 95800